=== PATIENT | female | born 1980 | race Caucasian/White ===

== ENCOUNTER 2020-03-26 18:17 | Emergency (ER) | payer OTHER, SELFPAY ==
[2020-03-26 18:17] VITALS: BP 129/85; PULSE 88; RESP 28; O2SAT 81; BMI 29.9
--- NOTE | 2020-03-26 18:52 | ED_ITS ---
HPI - COVID General: Chief Complaint: COVID symptoms Stated Complaint: SOB Time Seen by Provider: 03/26/20 18:35 Triage information: Has fever, cough or shortness of breath . Exposure to COVID + person last 14 days History of Present Illness: HPI Narrative: Is a 39-year-old female. She presents stating I have Covid . She brought her [id number] to the hospital on Tuesday where she was diagnosed with Covid and admitted to the VICU. The patient said she was around her without a mask and today started feeling achy and burning in her chest. She got up from a nap this afternoon and could not breathe. That is when she went to [facility] where she got up rapid antigen test that was negative. They told her she could have a blood clot and sent her to the ER. She is complaining of severe shortness of breath and tingling in both of her hands. She is overall healthy. She does have history of anxiety which has been worse with the Covid pandemic. 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 complaint: reported COVID exposure COVID 19 common symptoms: positive dyspnea and fatigue; negative fever(s), chills, non-productive cough, productive cough, headache(s), nausea or vomiting COVID 19 other sytmptoms: positive chest pain COVID Results: SARS-CoV-2 Antigen (Rapid) Negative (Negative) 03/26/20 19:34 03/26/20 Review of Systems General: Reports: 10 or more systems reviewed and unremarkable except in HPI and below Const: Reports: fatigue and malaise; Denies: fever(s) or chills Eyes: Denies: change in vision ENMT: Denies: odynophagia Card: Reports: chest pain; Denies: swelling of feet/ankles Resp: Reports: dyspnea; Denies: productive cough or non-productive cough GI: Denies: abdominal pain, nausea or vomiting : Denies: flank pain or difficulty voiding Musc: Denies: neck pain or back pain Skin/Breast: Denies: rash Neuro: Reports: other (Tingling in both hands); Denies: headache(s), numbness in extremities or weakness in extremities George/Lymph: Denies: easy bruising or easy bleeding Physical Exam Const: COMMON NORMALS: no acute distress, patient oriented x3, no limitations and alert GENERAL APPEARANCE: cooperative and comfortable HENMT: HEAD & SCALP: normal to inspection FACE & SINUS: normal facial exam Eye: GENERAL EYE: appearance normal, both eyes and all related structures Neck/C-Spine: COMMON NORMALS: supple, no meningeal signs and no JVD Chest: COMMONS NORMALS: normal inspection of the chest Resp: COMMON NORMALS: normal respiratory effort, No use of accessory muscles and clear to auscultation bilaterally AUSCULTATION: clear to auscultation bilaterally Cardio: COMMON NORMALS: no JVD, regular rate, regular rhythm and No murmurs present (Cardio) RATE: regular rate RHYTHM: regular rhythm GI: COMMON NORMALS: Normal to inspection, nondistended, normoactive bowel sounds present, Soft to palpation and non-tender INSPECTION: Yes normal to inspection AUSCULTATION: Yes normoactive bowel sounds PALPATION: Yes Soft to palpation Back/Pelvis: COMMON NORMALS: thoracic and lumbar spine normal to inspection Extremity: COMMON NORMALS: normal to inspection Neuro: COMMON NORMALS: patient oriented x3, moves all extremities, no focal motor deficits and no sensory deficits noted SENSORIUM/ORIENTATION: Yes alert MENINGEAL SIGNS: Yes no meningeal signs Psych: COMMON NORMALS: mental status grossly normal, cooperative and normal affect Skin: COMMON NORMALS: no rashes or lesions noted and turgor normal GENERAL SKIN EXAM: no rashes or lesions noted and turgor normal Course ED course: On my evaluation the patient was 100% on room air. She was hyperventilating and with some coaching she was able to control that and slow her breathing down. Work-up is very benign including a negative Covid test. As she did have a definite exposure on Tuesday advised her to remain quarantined until 14 days from that exposure. She has outpatient follow-up in place. Vital Signs: Vital signs: Vital Signs Temperature 98.2 F 03/26/20 21:02 Pulse Rate 67 03/26/20 21:02 Respiratory Rate 23 H 03/26/20 21:02 Blood Pressure 127/85 03/26/20 21:02 Pulse Oximetry 100 03/26/20 21:02 MDM - COVID Lab Data: Labs: Lab Results 03/26/20 03/26/20 03/26/20 Range/Units 19:34 19:34 19:34 WBC 5.3 (4.0-10.0) 10^3/ uL RBC 4.29 (4.1-5.3) 10^6/u L Hgb 12.7 (11.5-15.3) g/dL Hct 38.0 (37.0-47.0) % MCV 88.6 (81-99) fL MCH 29.6 (28.0-34.0) pg MCHC 33.4 (30.0-36.0) g/dL RDW 12.6 (12.1-15.1) % Plt Count 221 (130-400) 10^3/c mm MPV 11.7 H (7.4-10.4) fL Neut % (Auto) 50.5 % Lymph % (Auto) 30.8 % Gulf % (Auto) 14.3 % Eos % (Auto) 3.2 % Baso % (Auto) 0.8 % Neut # (Auto) 2.70 (1.8-7.7) 10^3/u L Lymph # (Auto) 1.6 (0.8-4.8) 10^3/u L Gulf # (Auto) 0.8 (0.2-0.9) 10^3/u L Eos # (Auto) 0.2 (0.0-0.8) 10^3/u L Baso # (Auto) 0.0 (0.0-0.1) 10^3/u L Nucleated RBC % (a uto) 0 % Nucleated RBCs # 0.0 /100WBC PT 11.90 L (12.1-14.9) SECO NDS INR 0.86 (0.8-1.2) Fibrinogen 366 (174-498) mg/dL D-Dimer 0.78 H (0-0.59) ug/mIFE U Sodium 136 (136-145) mmol/L Potassium 3.8 (3.5-5.1) mmol/L Chloride 103 (98-107) mmol/L Carbon Dioxide 22 (22-29) mmol/L Anion Gap 14.8 (5-19) BUN 13 (6-20) mg/dL Creatinine 0.8 (0.5-0.9) mg/dL GFR Calculation 79.4 L (90-130) mL/min Glucose 94 (65-115) mg/dL Calculated Osmolal ity 282 L (285-295) mOsm/k g Lactic Acid (0.5-2.2) mmol/L Calcium 9.4 (8.5-10.5) mg/dL Ferritin 12 L (15-150) ng/mL Total Bilirubin 0.2 (0.15-1.2) mg/dL AST 18 (0-32) U/L ALT 19 (0-33) U/L Alkaline Phosphata se 49 (35-105) IU/L Lactate Dehydrogen ase 163 (135-214) U/L C-Reactive Protein 3.2 (0.0-4.9) mg/L NT-Pro-B Natriuret Pep 89 (0-125) pg/mL Total Protein 7.1 (6.6-8.7) g/dL Albumin 4.3 (3.5-5.2) g/dL Globulin 2.8 (1.3-4.6) g/dL Procalcitonin 0.02 (0-0.5) ng/mL Influenza Type A A g (Negative) Influenza Type B A g (Negative) SARS-CoV-2 Ag (Rap id) (Negative) 03/26/20 03/26/20 03/26/20 Range/Units 19:34 19:34 19:34 WBC (4.0-10.0) 10^3/ uL RBC (4.1-5.3) 10^6/u L Hgb (11.5-15.3) g/dL Hct (37.0-47.0) % MCV (81-99) fL MCH (28.0-34.0) pg MCHC (30.0-36.0) g/dL RDW (12.1-15.1) % Plt Count (130-400) 10^3/c mm MPV (7.4-10.4) fL Neut % (Auto) % Lymph % (Auto) % Gulf % (Auto) % Eos % (Auto) % Baso % (Auto) % Neut # (Auto) (1.8-7.7) 10^3/u L Lymph # (Auto) (0.8-4.8) 10^3/u L Gulf # (Auto) (0.2-0.9) 10^3/u L Eos # (Auto) (0.0-0.8) 10^3/u L Baso # (Auto) (0.0-0.1) 10^3/u L Nucleated RBC % (a uto) % Nucleated RBCs # /100WBC PT (12.1-14.9) SECO NDS INR (0.8-1.2) Fibrinogen (174-498) mg/dL D-Dimer (0-0.59) ug/mIFE U Sodium (136-145) mmol/L Potassium (3.5-5.1) mmol/L Chloride (98-107) mmol/L Carbon Dioxide (22-29) mmol/L Anion Gap (5-19) BUN (6-20) mg/dL Creatinine (0.5-0.9) mg/dL GFR Calculation (90-130) mL/min Glucose (65-115) mg/dL Calculated Osmolal ity (285-295) mOsm/k g Lactic Acid 2.1 (0.5-2.2) mmol/L Calcium (8.5-10.5) mg/dL Ferritin (15-150) ng/mL Total Bilirubin (0.15-1.2) mg/dL AST (0-32) U/L ALT (0-33) U/L Alkaline Phosphata se (35-105) IU/L Lactate Dehydrogen ase (135-214) U/L C-Reactive Protein (0.0-4.9) mg/L NT-Pro-B Natriuret Pep (0-125) pg/mL Total Protein (6.6-8.7) g/dL Albumin (3.5-5.2) g/dL Globulin (1.3-4.6) g/dL Procalcitonin (0-0.5) ng/mL Influenza Type A A g Negative (Negative) Influenza Type B A g Negative (Negative) SARS-CoV-2 Ag (Rap id) Negative (Negative) COVID Results: SARS-CoV-2 Antigen (Rapid) Negative (Negative) 03/26/20 19:34 03/26/20 Discharge Plan Discharge Patient Disposition: Home Clinical Impression: Acute dyspnea, Exposure to severe acute respiratory syndrome coronavirus 2 (KULDIP S-CoV-2) Condition: Stable Prescriptions: No Action aspirin 81 mg Tablet 81 mg PO DAILY RF: 0 bupropion HCl 150 mg tablet extended release 24 hr 150 mg PO DAILY RF: 0 Discharge Orders: Discharge Order (Routine); Ordered 03/26/20 Ordered By: Norma Power Referrals: Lenny Rea MD [Primary Care Provider] - Discharge Diet: Usual diet Discharge Activity: Limit activity as instructed Patient Instructions: Viral Syndrome (ED) Activity Restrictions/Additional Instructions: Continue to self isolate from 14 days and return to the ED if you have trouble breathing or any other concerns. Follow up with Dr. Rea. Coding Level of Care Code ED Manager Instrumentation for Severiano Munoz
--- NOTE | 2020-03-26 18:58 | CTR_ITS ---
PROCEDURE INFORMATION: Exam: CT Angiography Chest With Contrast Exam date and time: 03/26/2020 7:00 PM Age: 39 years old Clinical indication: Shortness of breath; Additional info: KAITLYNN Koch TECHNIQUE: Imaging protocol: Computed tomographic angiography of the chest with intravenous contrast. 3D rendering (Not supervised by radiologist): MIP and/or 3D reconstructed images were created by the technologist. Radiation optimization: All CT scans at this facility use at least one of these dose optimization techniques: automated exposure control; mA and/or kV adjustment per patient size (includes targeted exams where dose is matched to clinical indication); or iterative reconstruction. Contrast material: OMNI 350; Contrast volume: 76 ml; Contrast route: INTRAVENOUS (IV); COMPARISON: No relevant prior studies available. RADIATION DOSE METRICS: Total DLP (mGy-cm): 560.83 FINDINGS: Pulmonary arteries: No visible evidence of pulmonary embolism/pulmonary arterial thrombus. Aorta: Minimal fusiform aneurysmal dilatation of the ascending thoracic aorta without visible intimal flap or dissection. The ascending thoracic aorta measures a maximum diameter of 39 mm. Lungs: Tiny focus of ground-glass interstitial lung disease along the pleural margin posterior basal segment right lower lobe measuring only 13 mm. No other evidence of active interstitial or alveolar airspace disease bilaterally. Potential small focus of active interstitial pneumonitis. Pleural space: Unremarkable. No pneumothorax. No pleural effusion. Heart: Unremarkable. No cardiomegaly. No pericardial effusion. Lymph nodes: No visible active mediastinal or hilar lymphadenopathy. Bones/joints: Mild degenerative disease of the spine. No visible acute osseous abnormality. Soft tissues: Unremarkable. Other findings: Heavy body habitus. CT/CT angio chest PE protcl [id number] IMPRESSION: 1. No visible evidence of pulmonary embolism/pulmonary arterial thrombus. 2. Minimal fusiform aneurysmal dilatation of the ascending thoracic aorta without visible intimal flap or dissection. 3. Tiny focus of ground-glass interstitial lung disease along the pleural margin posterior basal segment right lower lobe. Clinical significance indeterminate. Radiation Dose CTDIVOL = (mGy): DLP = 560.83 (mGy-cm)
[2020-03-26 19:06] VITALS: BP 136/100; PULSE 73; RESP 23; O2SAT 99
[2020-03-26] MEDS: iohexol 350 mg/mL 100 mL Btl IV (19:20)
[2020-03-26] MEDS: dexamethasone 4 mg/mL INJ 6 MG IVP (19:39)
[2020-03-26 19:47] LABS: Basophils % 0.8 %; Eosinophils # 0.2 10^3/uL (0.0-0.8); Eosinophils % 3.2 %; Hemoglobin 12.7 g/dL (11.5-15.3); Lymphocytes # 1.6 10^3/uL (0.8-4.8); Lymphocytes % 30.8 %; Mean Corpuscular HGB Conc 33.4 g/dL (30.0-36.0); Mean Corpuscular Hemoglobin 29.6 pg (28.0-34.0); Mean Corpuscular Volume 88.6 fL (81-99); Mean Platelet Volume 11.7 fL (7.4-10.4); Monocytes # 0.8 10^3/uL (0.2-0.9); Monocytes % 14.3 %; Neutrophils % 50.5 %; Nucleated Red Blood Cells % 0 %; Platelet Count 221 10^3/cmm (130-400); Red Blood Count 4.29 10^6/uL (4.1-5.3); Red Cell Distribution Width 12.6 % (12.1-15.1); White Blood Count 5.3 10^3/uL (4.0-10.0)
[2020-03-26 20:00] VITALS: BP 126/86; PULSE 70; RESP 24; O2SAT 100
[2020-03-26 20:06] LABS: INR 0.86 (0.8-1.2)
[2020-03-26 20:07] LABS: Fibrinogen 366 mg/dL (174-498)
[2020-03-26 20:10] LABS: Lactic Sepsis W/Reflex 2.1 mmol/L (0.5-2.2)
[2020-03-26 20:11] LABS: D Dimer 0.78 ug/mIFEU (0-0.59)
[2020-03-26 20:19] LABS: Alanine Aminotransferase 19 U/L (0-33); Albumin Level 4.3 g/dL (3.5-5.2); Alkaline Phosphatase 49 IU/L (35-105); Aspartate Amino Transferase 18 U/L (0-32); Blood Urea Nitrogen 13 mg/dL (6-20); C Reactive Protein 3.2 mg/L (0.0-4.9); Calcium 9.4 mg/dL (8.5-10.5); Carbon Dioxide 22 mmol/L (22-29); Chloride 103 mmol/L (98-107); Globulin 2.8 g/dL (1.3-4.6); Glomerular Filtration Rate 79.4 mL/min (90-130); Glucose 94 mg/dL (65-115); NT Pro B Type Natriuretic Pept 89 pg/mL (0-125); Osmolality Calculated 282 mOsm/kg (285-295); Sodium 136 mmol/L (136-145); Total Bilirubin 0.2 mg/dL (0.15-1.2); Total Protein 7.1 g/dL (6.6-8.7)
[2020-03-26 20:23] LABS: Anion Gap 14.8 (5-19); Potassium 3.8 mmol/L (3.5-5.1)
[2020-03-26 20:24] LABS: Lactate Dehydrogenase 163 U/L (135-214)
[2020-03-26 20:25] LABS: Influenza A by IFA Negative (Negative); Influenza B by IFA Negative (Negative); SARS Covid-2 Antigen Negative (Negative)
[2020-03-26 20:28] VITALS: BP 126/86; PULSE 71; RESP 22; O2SAT 99
[2020-03-26 21:02] VITALS: BP 127/85; PULSE 67; RESP 23; TEMP 36.8; O2SAT 100
[2020-03-26 21:31] LABS: Reflex Lactate Order REFLEX LACTIC ORDERD
[2020-03-26 21:42] LABS: Procalcitonin 0.02 ng/mL (0-0.5)
[2020-03-26 22:10] LABS: Ferritin 12 ng/mL (15-150)
== END 2020-03-26 21:02 | disposition home or self-care (01) ==
PROVIDERS: Emergency Provider Emergency Medicine; PCP Family Medicine
DX: Z20.828 Contact with and (suspected) exposure to other viral communicable diseases (principal); R06.00 Dyspnea, unspecified; Z79.82 Long term (current) use of aspirin
CPT/HCPCS: 12345; 71275; 80053; 82728; 83605; 83615; 83880; 84145; 85025; 85378; 85384; 85610; 86140; 87426; 87804; 96374; 96375; 99283; 99284; J1100; Q9967

== ENCOUNTER → 2023-06-01 10:15 | Outpatient (BNVA) | payer OTHER, SELFPAY | PROVIDERS: PCP Family Medicine; Visit Provider Family Medicine | DX: I83.893 Varicose veins of bilateral lower extremities with other complications (principal); G62.9 Polyneuropathy, unspecified; R63.5 Abnormal weight gain; R53.83 Other fatigue; L81.9 Disorder of pigmentation, unspecified; R79.89 Other specified abnormal findings of blood chemistry | CPT/HCPCS: 80053; 80061; 82607; 82746; 84443; 85025; 85651; 86038; 86140 ==

== ENCOUNTER → 2023-07-19 12:20 | Outpatient (BNVA) | payer OTHER, SELFPAY | PROVIDERS: PCP Family Medicine; Referring Provider Family Medicine; Visit Provider Internal Medicine | DX: I21.29 ST elevation (STEMI) myocardial infarction involving other sites (principal); R07.9 Chest pain, unspecified | CPT/HCPCS: 93005 ==

== ENCOUNTER 2023-09-22 11:39 | Outpatient (CLI) | payer OTHER, SELFPAY ==
--- NOTE | 2023-09-22 12:00 | USCV_ITS ---
Malini Hui Age: 43 Gender: F : 1980 Exam Date: 09/22/2023 12:03 Ordering Phys: Palmer Cleaning M.D ([email or web address]) Technologist: Exam Location: [facility] [place]: HISTORY: PROCEDURES: Bilateral duplex Venous Insufficiency study of the Deep and Superficial systems was carried out according to normal protocol with the patient in supine positon for deep system and dependent position for the superficial system. FINDINGS: There is venous reflux at the below-knee segment of the greater saphenous vein on the right side of 1.9-second. The venous segment was measuring 0.55 cm in diameter, anterior depth of 2.1 cm On the left side reflections were noted at the mid, distal and below- knee segment of the greater saphenous vein. The reflux time where 1.38, 1.5 and 2.4 seconds. These segments were greater than 1 cm deep from the surface. The segments were measuring 0.8, 0.5 and 0.5 cm respectively. CONCLUSIONS 1. No evidence of deep vein thrombosis in the above-mentioned veins. 2. Significant venous reflux of greater than 500 ms were noted at the below-knee level of the great saphenous vein on the right side. The mid, distal and below-knee segments of the greater sinus vein on the left side also was found to have significant venous reflux of greater than 500 ms. The saphenous segments were greater than 1 cm deep from service. The segments were also found to be very tortuous. The venous segment measured 0.5 cm on the right side and 0.5 to 0.8 cm on the left side. The reflux time and the depth from the surface are as mentioned above Dr Angely Rivera MD [facility] (Electronically Signed) Final Date: 24 Sep 2023 18:51 S
== END 2023-09-22 11:40 | disposition home or self-care (01) ==
LOC: RAD 11:39
PROVIDERS: PCP Family Medicine; Visit Provider Internal Medicine
DX: M79.604 Pain in right leg (principal); M79.605 Pain in left leg; I87.2 Venous insufficiency (chronic) (peripheral); I83.90 Asymptomatic varicose veins of unspecified lower extremity
CPT/HCPCS: 93970

== ENCOUNTER 2023-11-22 10:29 | Outpatient (CLI) | payer OTHER, SELFPAY | END 2023-11-22 10:30 | disposition home or self-care (01) | LOC: LAB 10:32 | PROVIDERS: PCP Family Medicine; Visit Provider Family Medicine | DX: R76.8 Other specified abnormal immunological findings in serum (principal); R53.1 Weakness; R29.6 Repeated falls; R26.89 Other abnormalities of gait and mobility; R27.0 Ataxia, unspecified | CPT/HCPCS: 36415; 85651; 86140; 86160; 86162; 86200; 86235; 86255; 86376; 86431; 86812 ==

== ENCOUNTER 2023-12-01 15:35 | Outpatient (CLI) | payer OTHER, SELFPAY ==
[2023-12-01 16:53] LABS: Hepatitis B Core AB, Total Non-Reactive (Nonreactive); Hepatitis B Surface AB 180.5 (11.5-1000); Hepatitis B Surface Antigen Non-Reactive (Nonreactive); Hepatitis C Virus Antibody Non-Reactive (Nonreactive)
[2023-12-02 15:14] LABS: HIV AG/AB 4th Generation NON-REACTIVE (NON-REACTIVE)
[2023-12-03 13:14] LABS: Quantiferon Mitogen 9.34 IU/mL; Quantiferon Nil 0.01 IU/mL; Quantiferon Plus TB2 0.01 IU/mL; Quantiferon TB Gold NEGATIVE (NEGATIVE)
== END 2023-12-01 15:36 | disposition home or self-care (01) ==
LOC: LAB 15:37
PROVIDERS: PCP Family Medicine; Visit Provider Family Medicine
DX: R76.8 Other specified abnormal immunological findings in serum (principal); M25.50 Pain in unspecified joint; Z79.899 Other long term (current) drug therapy
CPT/HCPCS: 36415; 86480; 86705; 86706; 86803; 87340; 87389

== ENCOUNTER 2024-01-24 11:36 | Outpatient (CLI) | payer BC, SELFPAY ==
[2024-01-24 12:04] LABS: Basophils # 0.1 10^3/uL (0.0-0.1); Basophils % 0.7 %; Eosinophils # 0.1 10^3/uL (0.0-0.8); Eosinophils % 1.6 %; Lymphocytes # 2.1 10^3/uL (0.8-4.8); Lymphocytes % 25.2 %; Mean Corpuscular HGB Conc 33.3 g/dL (30-55); Mean Corpuscular Hemoglobin 29.9 pg (27-33); Mean Corpuscular Volume 89.7 fl (85-98); Mean Platelet Volume 10.6 fL (7.4-10.4); Monocytes # 0.7 10^3/uL (0.2-0.9); Neutrophils # 5.16 10^3/uL (1.8-7.7); Neutrophils % 63.4 %; Nucleated Red Blood Cells % 0 %; Platelet Count 266 10^3/cmm (157-399); Red Blood Count 4.68 10^6/uL (3.85-5.65); Red Cell Distribution Width 12.7 % (12.1-15.1); White Blood Count 8.14 10^3/uL (3.29-11.43)
[2024-01-24 12:08] LABS: Erythrocyte Sedimentation Rate 4 mm/hr (0-15)
[2024-01-24 12:09] LABS: Bilirubin Urine Negative (Negative); Blood Urine Negative (Negative); Glucose Urine UA Negative (Normal); Ketones Urine Negative (Negative); Leukocyte Esterase Urine Negative (Negative); Nitrate Urine Negative (Negative); Protein Urine Negative (Negative); Specific Gravity, Urine 1.017 (1.005-1.030); Urine Color Yellow (Yellow); pH Urine 5.5 (5-7)
[2024-01-24 12:11] LABS: Bacteria Urine None Seen /hpf; Hyaline Casts Urine 1.21 /lpf; RBC Urine 0-2 /hpf (0-2)
[2024-01-24 12:14] LABS: Add Urine Culture? No; Urine Appearance Clear (CLEAR)
[2024-01-24 12:21] LABS: Alanine Aminotransferase 18 U/L (0-33); Albumin Level 4.5 g/dL (3.5-5.2); Alkaline Phosphatase 51 U/L (35-105); Aspartate Amino Transferase 14 U/L (0-32); C Reactive Protein 7.1 mg/L (0.0-4.9); Globulin 3.1 g/dL (1.3-4.6); Glomerular Filtration Rate 90.9 mL/min (90-130); Total Bilirubin 0.3 mg/dL (0.15-1.2); Total Protein 7.6 g/dL (6.6-8.7)
[2024-01-24 12:24] LABS: Urine Creatinine 165 mg/dL (28-217); Urine Protein Random 10 mg/dL
== END 2024-01-24 11:37 | disposition home or self-care (01) ==
LOC: LAB 11:38
PROVIDERS: PCP Family Medicine; Visit Provider Internal Medicine Rheumatology
DX: R76.8 Other specified abnormal immunological findings in serum (principal)
CPT/HCPCS: 36415; 80076; 81001; 82565; 82570; 84156; 85025; 85651; 86140